=== PATIENT | male | born 1990 | race Caucasian/White ===

== ENCOUNTER 2018-05-18 14:20 | Emergency (ER) | payer MEDICAID, OTHER ==
[2018-05-18 15:11] VITALS: BP 127/82; PULSE 77; RESP 20; TEMP 98.3; O2SAT 100
[2018-05-18] MEDS ORDERED: cefTRIAXone (Rocephin) 250 mg Inj IM ONE (18:23)
--- NOTE | 2018-05-18 18:46 | ED PDOC ---
HPI: Male Pain Time Seen by Provider: 05/18/18 17:53 Chief Complaint (Nursing): Male Genitourinary Chief Complaint (Provider): Male Genitourinary History Per: Patient History/Exam Limitations: no limitations Onset/Duration Of Symptoms: Days (1x) Current Symptoms Are (Timing): Still Present Associated Symptoms: Urinary Symptoms (dysuria, itching of urethra during urin ation) Additional Complaint(s): 27 year old male with no pertinent past medical history presents to the ED for STD prophylaxis. Patient reports that he had a sexual encounter with a female last night with no protection. Patient reports that his partner called him today and told him she was positive for chlamydia, prompting ED evaluation. Patient reports having a history of chlamydia 3x years ago. Patient states that this is the only partner he has had in the past 6x months. Patient reports that today he developed dysuria and an itching sensation to his urethra when he urinates. Otherwise: (-) fevers, (-) penile discharge, (-) nausea, (-) vomiting, (-) hematuria, (-) testicular pain. PMD: None. Past Medical History Reviewed: Historical Data, Nursing Documentation, Vital Signs Vital Signs: Last Vital Signs Temp 98.3 F 05/18/18 15:09 Pulse 77 05/18/18 15:09 Resp 20 05/18/18 15:09 BP 127/82 05/18/18 15:09 Pulse Ox 100 05/18/18 15:09 HOA Report Viewed: Yes - Medical History PMH: Gastritis - Surgical History Surgical History: No Surg Hx - Family History Family History: States: No Known Family Hx - Social History Current smoker - smoking cessation education provided: No Alcohol: None Drugs: Cannabis - Home Medications Home Medications: Ambulatory Orders Medication Instructions Recorded Naproxen [Naprosyn] 500 mg PO Q12H #20 tab 07/19/14 - Allergies Allergies/Adverse Reactions: Allergies Allergy/AdvReac Type Severity Reaction Status Date / Time No Known Allergies Allergy Verified 05/18/18 15:09 Review of Systems ROS Statement: Except As Marked, All Systems Reviewed And Found Negative Constitutional: Negative for: Fever Genitourinary Male: Positive for: Dysuria (and itching of urethra during urination). Negative for: Hematuria, Penile Discharge, Other (testicular pain) Physical Exam - Reviewed Nursing Documentation Reviewed: Yes Vital Signs Reviewed: Yes - Physical Exam Comments: GENERAL APPEARANCE: Patient is awake, alert, oriented x 3, in no acute distress. SKIN: Warm, dry; (-) cyanosis. ENMT: Mucous membranes moist. Airway patent: (-) stridor. NECK: Supple, FROM CHEST AND RESPIRATORY: (-) wheezing; (-) rales, (-) rhonchi; breath sounds equal bilaterally. Respirations nonlabored. HEART AND CARDIOVASCULAR: (-) irregularity ABDOMEN AND GI: Soft; (-) tenderness (-) CVA tenderness (-) guarding (-) distention (-) rebound. EXTREMITIES: (-) deformity NEURO AND PSYCH: Mental status as above; (-) focal findings. Gait: steady. Speech: clear. (-) facial asymmetry - ECG O2 Sat by Pulse Oximetry: 100 (RA) Pulse Ox Interpretation: Normal Medical Decision Making Medical Decision Makin:55 Clinical impression: 27 year old male with urethritis secondary to STD exposure. Initial plan: * chlamydia/GC RNA, TMA * rocephin 250 mg IM once * zithromax 1,000 mg PO once * urine culture * urinalysis * reevaluation 2000 U/A unremarkable. On exam, patient remains AAOx3, in no acute distress. Vitals stable. Lab/Diagnostic results d/w the patient in great detail. Diagnosis of STD exposure, urethritis d/w the patient. Based on history, exam and diagnostic results, plan will be for outpatient follow up. Patient instructed to follow-up with pmd / referral provided / the clinic in 1- 2 days without fail. Return to the emergency room at any time for any new or worsening symptoms. Patient states he fully agrees with and understands discharge instructions. States that he agrees with the plan and disposition. Verbalized and repeated discharge instructions and plan. I have given the patient opportunity to ask any additional questions. ------ Scribe Attestation: Documented byLeonor Lopes, acting as a scribe for Leonor Oro Provider Scribe Attestation: All medical record entries made by the Scribe were at my direction and personally dictated by me. I have reviewed the chart and agree that the record accurately reflects my personal performance of the history, physical exam, medical decision making, and the department course for this patient. I have also personally directed, reviewed, and agree with the discharge instructions and disposition. Disposition - Clinical Impression Clinical Impression: STD exposure, Urethritis - Patient ED Disposition Is Patient to be Admitted: No Counseled Patient/Family Regarding: Studies Performed, Diagnosis, Need For Followup - Disposition Referrals: [facility] [Outside] Disposition: Routine/Home Disposition Time: 20:00 Condition: STABLE Additional Instructions: PLEASE REFRAIN FROM SEXUAL ACTIVITY X2 WEEKS. PLEASE ENCOURAGE ALL PARTNERS TO BE TREATED WELL. The emergency medical care you received today was directed at your acute symptoms. If you were prescribed any medication, please fill it and take as directed. It may take several days for your symptoms to resolve. Return to the Emergency Department if your symptoms worsen, do not improve, or if you have any other problems. Please contact your doctor in 2 days for re-evaluation and follow up / or call one of the physicians/clinics you have been referred to that are listed on the Patient Visit Information form that is included in your discharge packet. Bring any paperwork you were given at discharge with you along with any medications you are taking to your follow up visit. Our treatment cannot replace ongoing medical care by a primary care provider (PCP) outside of the emergency department. Instructions: Urethritis, Chlamydia and Gonorrhea, Screening for Sexually Transmitted Infections, Sexually-Transmitted Diseases, STD Prevention Forms: [employer] (Dutch) Print Language: MALAY - POA Present On Arrival: None Results - Lab Results Lab Results: 05/18/18 19:45 Urine Color Yellow Urine Clarity Clear Urine pH 5.0 Ur Specific [place] 1.025 Urine Protein Negative Urine Glucose (UA) Neg Urine Ketones Negative Urine Blood Negative Urine Nitrate Negative Urine Bilirubin Negative Urine Urobilinogen 0.2-1.0 Ur Leukocyte Esterase Neg Urine RBC (Auto) 2 Urine Microscopic WBC 1
[2018-05-18] MEDS ORDERED: cefTRIAXone (Rocephin) 250 mg Inj ONE (19:49)
[2018-05-18 19:57] LABS: URINE BILIRUBIN NEGATIVE (NEGATIVE); URINE BLOOD NEGATIVE (NEGATIVE); URINE CLARITY CLEAR (Clear); URINE COLOR YELLOW (YELLOW); URINE GLUCOSE (UA) NEG (NEGATIVE); URINE LEUKOCYTE ESTERASE NEG Leu/uL (Negative); URINE PROTEIN NEGATIVE (NEGATIVE); URINE UROBILINOGEN 0.2-1.0 mg/dL (0.2-1.0)
== END 2018-05-18 20:35 | disposition home or self-care (01) ==
LOC: H.ER 14:20
DX: N34.2 Other urethritis (principal); Z20.2 Contact with and (suspected) exposure to infections with a predominantly sexual mode of transmission
CPT/HCPCS: 81003; 87086; 87491; 87591; 96372; 99282; J0696